=== PATIENT | male | born 1980 | race Caucasian/White ===

== ENCOUNTER 2018-06-11 17:02 | Emergency (ER) | payer SELFPAY ==
[2018-06-11 18:06] LABS: Basophils # (Auto) 0.1 K/mm3 (0.0-0.1); Eosinophils # (Auto) 0.1 K/mm3 (0.0-0.4); Eosinophils % (Auto) 1.6 % (0.0-4.3); Lymphocytes # (Auto) 1.6 K/mm3 (1.2-5.4); Lymphocytes % (Auto) 22.1 % (13.4-35.0); Mean Corpuscular HGB Conc 36 % (32-34); Mean Corpuscular Hemoglobin 30 pg (28-32); Mean Corpuscular Volume 84 fl (84-94); Monocytes # (Auto) 0.5 K/mm3 (0.0-0.8); Monocytes % (Auto) 7.3 % (0.0-7.3); Platelet Count 166 K/mm3 (140-440); Red Blood Count 5.46 M/mm3 (3.65-5.03); Red Cell Distribution Width 14.4 % (13.2-15.2)
[2018-06-11 18:13] LABS: Hematocrit 45.9 % (35.5-45.6); Hemoglobin 16.5 gm/dl (11.8-15.2)
[2018-06-11 18:20] LABS: Albumin 3.7 g/dL (3.9-5); BUN/Creatinine Ratio 20; Blood Urea Nitrogen 20 mg/dL (9-20); Calcium 9.2 mg/dL (8.4-10.2); Hemolysis Index 108
[2018-06-11 18:40] LABS: Alanine Aminotransferase 7 units/L (7-56)
[2018-06-11] MEDS ORDERED: NACL 0.9% 1000 ML 1,000 ML IV ONE (20:25)
--- NOTE | 2018-06-11 20:30 | Emergency Department Report ---
ED General Adult HPI - General Chief complaint: Hyperglycemia Stated complaint: HIGH BLOOD SUGAR Time Seen by Provider: 06/11/18 20:02 Source: patient Mode of arrival: Ambulatory Limitations: No Limitations - History of Present Illness Initial comments: Patient is a 37 years old male with history of diabetes on metformin 500 mg twice a day. Patient presented to the ER stating that his blood sugar is very high up to 500. He stated that he is out of his medication for the last 2 weeks. Patient denied any chest pain, shortness of breath, abdominal pain, nausea or vomiting. Patient denies fever. He stated that he is going to the bathroom a lot for urination but denied any dysuria or hematuria. - Related Data Previous Rx's Medication Instructions Recorded Last Taken Type Lisinopril 20 mg PO DAILY #30 tablet 06/11/18 Unknown Rx glipiZIDE [Glipizide] 2.5 mg PO DAILY #30 tablet 06/11/18 Unknown Rx metFORMIN [Glucophage] 500 mg PO BID #60 tablet 06/11/18 Unknown Rx Allergies Allergy/AdvReac Type Severity Reaction Status Date / Time No Known Allergies Allergy Verified 06/11/18 17:19 ED Review of Systems ROS: Stated complaint: HIGH BLOOD SUGAR Other details as noted in HPI Comment: All other systems reviewed and negative Constitutional: denies: chills, fever Respiratory: denies: cough, orthopnea, shortness of breath, SOB with exertion, wheezing Cardiovascular: denies: chest pain, palpitations, dyspnea on exertion Gastrointestinal: denies: abdominal pain, nausea, vomiting, diarrhea, hematemesis Genitourinary: frequency. denies: urgency, dysuria, hematuria, discharge Neurological: denies: headache, weakness, numbness, paresthesias, confusion, abnormal gait ED Past Medical Hx - Past Medical History Previous Medical History?: Yes Hx Diabetes: Yes (type 2) - Surgical History Past Surgical History?: No - Social History Smoking Status: Never Smoker Substance Use Type: None - Medications Home Medications: Home Medications Medication Instructions Recorded Confirmed Last Taken Type Lisinopril 20 mg PO DAILY #30 tablet 06/11/18 Unknown Rx glipiZIDE [Glipizide] 2.5 mg PO DAILY #30 tablet 06/11/18 Unknown Rx metFORMIN [Glucophage] 500 mg PO BID #60 tablet 06/11/18 Unknown Rx ED Physical Exam - General Limitations: No Limitations General appearance: alert, in no apparent distress - Head Head exam: Present: atraumatic, normocephalic, normal inspection - Eye Eye exam: Present: normal appearance - ENT ENT exam: Present: normal exam, mucous membranes dry - Neck Neck exam: Present: normal inspection, full ROM. Absent: tenderness, meningismus, lymphadenopathy, thyromegaly - Respiratory Respiratory exam: Present: normal lung sounds bilaterally. Absent: respiratory distress, wheezes, rales, rhonchi, chest wall tenderness, accessory muscle use - Cardiovascular Cardiovascular Exam: Present: regular rate, normal rhythm, normal heart sounds - GI/Abdominal GI/Abdominal exam: Present: soft, normal bowel sounds. Absent: distended, tenderness, guarding, rebound, rigid, organomegaly, mass, bruit, pulsatile mass , hernia - Extremities Exam Extremities exam: Present: normal inspection, full ROM, normal capillary refill - Back Exam Back exam: Present: normal inspection, full ROM. Absent: tenderness, CVA tenderness (R), CVA tenderness (L), muscle spasm, paraspinal tenderness, vertebral tenderness, rash noted - Neurological Exam Neurological exam: Present: alert, oriented X3, CN II-XII intact, normal gait, reflexes normal - Skin Skin exam: Present: warm, intact, normal color ED Course Vital Signs 06/11/18 06/11/18 06/11/18 17:13 21:03 23:42 Temperature 98.5 F 98.5 F Pulse Rate 87 54 L Respiratory 18 18 Rate Blood Pressure 131/77 Blood Pressure 99/69 [Right] O2 Sat by Pulse 97 97 100 Oximetry - Reevaluation(s) Reevaluation #1: 06/11/18 22:59 Patient stated that he is feeling much better. His blood glucose is 272. Glipizide and advised the patient to follow-up with his primary care physician in the next 2-3 days. I will also refill his metformin. ED Medical Decision Making - Lab Data Result diagrams: 06/11/18 17:37 06/11/18 17:37 Critical care attestation.: If time is entered above; I have spent that time in minutes in the direct care of this critically ill patient, excluding procedure time. ED Disposition Clinical Impression: Hyperglycemia Disposition: DC-01 TO HOME OR SELFCARE Is pt being admited?: No Condition: Stable Instructions: Diabetic Hyperglycemia (ED) Prescriptions: glipiZIDE [Glipizide] 2.5 mg PO DAILY #30 tablet Lisinopril 20 mg PO DAILY #30 tablet metFORMIN [Glucophage] 500 mg PO BID #60 tablet Referrals: PRIMARY CARE, [Primary Care Provider] - 3-5 Days
[2018-06-11] MEDS ORDERED: HumuLIN R IV ONE (20:43)
[2018-06-11 22:51] LABS: Bilirubin,Urine Negative (Negative); Blood,Urine Negative (Negative)
[2018-06-11 22:52] LABS: Protein,Urine <15 mg/dL mg/dL (Negative); Urobilinogen,Urine < 2.0 mg/dL (<2.0)
[2018-06-11 23:00] LABS: Mucus,Urine FEW /HPF; WBC,Urine < 1.0 /HPF (0.0-6.0)
[2018-06-11 23:03] LABS: Color,Urine Straw (Yellow)
[2018-06-11 23:44] VITALS: BP 99/69
== END 2018-06-11 23:42 | disposition home or self-care (01) ==
LOC: ED 17:02
DX: E11.65 Type 2 diabetes mellitus with hyperglycemia (principal); Z79.84 Long term (current) use of oral hypoglycemic drugs
CPT/HCPCS: 36415; 80053; 81001; 82805; 82962; 85025; 96361; 96374; 99283; J7030; J1815